=== PATIENT | male | born 1995 | race Hispanic/Latino ===

== ENCOUNTER 2024-04-04 10:21 | Emergency (ER) | payer OTHER ==
[~2024-04-04] VITALS: Ht 177.8 cm; Wt 72.6 kg
[2024-04-04 10:26] VITALS: BP 133/79; PULSE 78; RESP 17; O2SAT 98
[2024-04-04] MEDS: IBUPROFEN 600 MG TABLET PO ONE (12:59)
== END 2024-04-04 15:49 | disposition home or self-care (01) ==
LOC: EDH 10:21
DX: M79.671 Pain in right foot (principal)
CPT/HCPCS: 73630